=== PATIENT | male | born 1985 | race Caucasian/White ===

== ENCOUNTER 2018-03-12 14:22 | Observation (INO) | payer BC ==
[~2018-03-12] VITALS: Ht 177.8 cm; Wt 91.0 kg
[2018-03-12 15:07] LABS: MICROSCOPIC INDICATED
[2018-03-12 15:09] LABS: BASOPHILS # (AUTO) 0.04 x10^3/uL (0-0.1); BASOPHILS % (AUTO) 1 % (0-1); EOSINOPHILS % (AUTO) 2 % (1-7); LYMPHOCYTES # (AUTO) 1.98 x10^3/uL (1-3.4); LYMPHOCYTES % (AUTO) 31 % (22-44); MD NO; MEAN CORPUSCULAR HEMOGLOBIN 29.2 pg (27.5-34.5); MEAN CORPUSCULAR HGB CONC 34.2 g/dL (33.2-36.2); MEAN CORPUSCULAR VOLUME 85.4 fL (81-97); MEAN PLATELET VOLUME 7.7 fL (7.4-10.4); MONOCYTES # (AUTO) 0.47 x10^3/uL (0.2-0.8); MONOCYTES % (AUTO) 7 % (2-9); NEUTROPHILS # (AUTO) 3.87 x10^3/uL (1.8-6.8); NEUTROPHILS % (AUTO) 60 % (42-75); PLATELET COUNT 250 x10^3/uL (130-400); RED BLOOD COUNT 5.72 x10^6/uL (4.38-5.82); RED CELL DISTRIBUTION WIDTH 13.3 % (9.4-14.8)
[2018-03-12 15:22] LABS: CULTURE INDICATED? NO
[2018-03-12 15:22] LABS: ACETAMINOPHEN < 2 mcg/mL (10-30); ALANINE AMINOTRANSFERASE 38 U/L (12-78); ALBUMIN 4.8 g/dL (3.4-5.0); ANION GAP 11 mmol/L (5-15); CALCIUM 9.4 mg/dL (8.5-10.1); CHLORIDE 106 mmol/L (98-107); CREATININE 1.01 mg/dL (0.7-1.3); SALICYLATE LEVEL < 1.7 mg/dL (2.8-20.0)
[2018-03-12 15:24] LABS: ALKALINE PHOSPHATASE 63 U/L (45-117); BILIRUBIN,TOTAL 0.6 mg/dL (0.2-1.0); TOTAL PROTEIN 8.6 g/dL (6.4-8.2)
[2018-03-12 15:29] LABS: AMPHETAMINE SCREEN, URINE Negative (Negative); BARBITURATE SCREEN, URINE Negative (Negative); BENZODIAZEPINE SCREEN, URINE Negative (Negative); CANNABINOID SCREEN, URINE Negative (Negative); COCAINE SCREEN, URINE Negative (Negative); METHADONE SCREEN, URINE Negative (Negative); OPIATE SCREEN, URINE Negative (Negative)
[2018-03-13] MEDS ORDERED: ZOLPIDEM 5MG TABLET PO PRN (01:00)
[2018-03-13] MEDS ORDERED: DOCUSATE 100 MG CAPSULE PO PRN (01:00)
[2018-03-13] MEDS ORDERED: ACETAMINOPHEN 325 MG TABLET PO PRN (01:00)
[2018-03-13 01:13] VITALS: BP 120/78
[2018-03-13 08:00] VITALS: BP 122/77
== END 2018-03-13 15:51 ==
LOC: ED 16:26 → EDIP 20:32 → 2N 03-13 01:09
PROVIDERS: ADMIT Internal Medicine; ATTEND Internal Medicine
DX: F32.9 Major depressive disorder, single episode, unspecified (principal); N50.819 Testicular pain, unspecified; R45.851 Suicidal ideations; Z87.891 Personal history of nicotine dependence; Z82.3 Family history of stroke; Z80.1 Family history of malignant neoplasm of trachea, bronchus and lung
CPT/HCPCS: 36415; 80053; 80307; 80329; 81001; 85025; 99285; G0378; G0480

== ENCOUNTER 2018-04-11 12:27 | Emergency (ER) | payer BC ==
[~2018-04-11] VITALS: Ht 177.8 cm; Wt 89.3 kg
[2018-04-11] MEDS ORDERED: ONDANSETRON ODT 4 MG PO ONE (13:30)
[2018-04-11] MEDS ORDERED: MECLIZINE 12.5 MG TABLET PO PRN (13:30)
[2018-04-11] MEDS ORDERED: NORT10CA PO (13:31)
[2018-04-11] MEDS ORDERED: FLUO20CA19 PO (13:31)
[2018-04-11] MEDS ORDERED: CLAR500T PO (13:31)
[2018-04-11] MEDS ORDERED: MECLIZINE CHEWABLE 25 MG TAB ONE (13:40)
[2018-04-11] MEDS ORDERED: ONDANSETRON ODT 4 MG ONE (13:40)
[2018-04-11 14:02] LABS: BASOPHILS # (AUTO) 0.03 x10^3/uL (0-0.1); BASOPHILS % (AUTO) 0 % (0-1); EOSINOPHILS # (AUTO) 0.09 x10^3/uL (0-0.4); EOSINOPHILS % (AUTO) 1 % (1-7); LYMPHOCYTES # (AUTO) 2.58 x10^3/uL (1-3.4); LYMPHOCYTES % (AUTO) 34 % (22-44); MD NO; MEAN CORPUSCULAR HEMOGLOBIN 29.3 pg (27.5-34.5); MEAN CORPUSCULAR HGB CONC 34.2 g/dL (33.2-36.2); MEAN CORPUSCULAR VOLUME 85.6 fL (81-97); MEAN PLATELET VOLUME 7.8 fL (7.4-10.4); MONOCYTES # (AUTO) 0.52 x10^3/uL (0.2-0.8); MONOCYTES % (AUTO) 7 % (2-9); NEUTROPHILS # (AUTO) 4.49 x10^3/uL (1.8-6.8); NEUTROPHILS % (AUTO) 58 % (42-75); PLATELET COUNT 249 x10^3/uL (130-400); RED BLOOD COUNT 5.54 x10^6/uL (4.38-5.82); RED CELL DISTRIBUTION WIDTH 12.9 % (9.4-14.8)
[2018-04-11 14:13] LABS: ALBUMIN 4.9 g/dL (3.4-5.0); ANION GAP 7 mmol/L (5-15); CALCIUM 9.6 mg/dL (8.5-10.1); CHLORIDE 106 mmol/L (98-107)
[2018-04-11 14:17] LABS: ALANINE AMINOTRANSFERASE 35 U/L (12-78); ALKALINE PHOSPHATASE 55 U/L (45-117); BILIRUBIN,TOTAL 0.6 mg/dL (0.2-1.0); CREATININE 0.91 mg/dL (0.7-1.3); TOTAL PROTEIN 8.4 g/dL (6.4-8.2)
[2018-04-11 14:18] LABS: MICROSCOPIC NOT IND
[2018-04-11 14:21] LABS: CULTURE INDICATED? NO
[2018-04-11] MEDS ORDERED: ONDANSETRON 2MG/ML, 2ML IVPush ONE (15:30)
[2018-04-11] MEDS ORDERED: SODIUM CHLORIDE 0.9% 1,000ML IVBOLUS ONE (15:30)
[2018-04-11] MEDS ORDERED: ONDANSETRON 2MG/ML, 2ML ONE (15:36)
[2018-04-11 16:45] VITALS: BP 128/81
== END 2018-04-11 16:51 | disposition home or self-care (01) ==
LOC: ED 14:59
DX: H81.399 Other peripheral vertigo, unspecified ear (principal); J01.00 Acute maxillary sinusitis, unspecified; B34.9 Viral infection, unspecified; Z88.0 Allergy status to penicillin; Z88.8 Allergy status to other drugs, medicaments and biological substances; Z79.899 Other long term (current) drug therapy; Z86.19 Personal history of other infectious and parasitic diseases
CPT/HCPCS: 36415; 80053; 81003; 85025; 96361; 96374; 99283; J2405; J7030; Q0162

== ENCOUNTER 2020-02-13 17:28 | Emergency (ER) | payer BC, MEDICAID ==
[~2020-02-13] VITALS: Ht 177.8 cm; Wt 115.0 kg
[~2020-02-13 17:28] MED LIST: CLAR-14 PO; FLUO20CA19 PO; NORT10CA PO
[2020-02-13 18:24] LABS: BASOPHILS % (AUTO) 1 % (0-1); EOSINOPHILS % (AUTO) 3 % (1-7); LYMPHOCYTES % (AUTO) 29 % (22-44); MEAN CORPUSCULAR HEMOGLOBIN 28.9 pg (27.5-34.5); MEAN CORPUSCULAR HGB CONC 33.5 g/dL (33.2-36.2); MONOCYTES % (AUTO) 7 % (2-9); NEUTROPHILS % (AUTO) 60 % (42-75); PLATELET COUNT 245 x10^3/uL (130-400); RED BLOOD COUNT 5.77 x10^6/uL (4.38-5.82); RED CELL DISTRIBUTION WIDTH 13.8 % (9.4-14.8)
[2020-02-13 18:28] LABS: MD NO
[2020-02-13 18:31] LABS: ALANINE AMINOTRANSFERASE 120 U/L (12-78); ALBUMIN 4.3 g/dL (3.4-5.0); ANION GAP 7 mmol/L (5-15); CALCIUM 10.1 mg/dL (8.5-10.1); CHLORIDE 108 mmol/L (98-107); CREATININE 0.82 mg/dL (0.7-1.3)
[2020-02-13 18:33] LABS: ALKALINE PHOSPHATASE 102 U/L (45-117); BILIRUBIN,TOTAL 0.5 mg/dL (0.2-1.0)
--- NOTE | 2020-02-13 18:44 | NUR ---
TO ROOM FROM LOBBY. NAD.
--- NOTE | 2020-02-13 18:55 | NUR ---
REPORT GIVEN TO GIANLUCA PINEDA.
[2020-02-13 19:08] VITALS: BP 130/89
--- NOTE | 2020-02-13 19:09 | NUR ---
PT RESTING ON JOSS, RUYING IN PLACE. UPDATED ON POC, UA SENT. CALL LIGHT WITHIN REACH, ROOM DIMMED FOR PT COMFORT.
[2020-02-13 20:10] LABS: MICROSCOPIC INDICATED
[2020-02-13] MEDS ORDERED: OMNIPAQUE 350 MG/ML, 150 ML BOTTLE ONE (21:29)
== END 2020-02-13 20:43 | disposition home or self-care (01) ==
LOC: ED 20:37
DX: G89.29 Other chronic pain (principal); R10.31 Right lower quadrant pain; K76.0 Fatty (change of) liver, not elsewhere classified
CPT/HCPCS: 36415; 74177; 80053; 81001; 83690; 85025; 99285; Q9967